=== PATIENT | female | born 1980 | race Caucasian/White ===

== ENCOUNTER → 2018-02-19 | Outpatient (CLI) | payer MEDICAID ==
[~2018-02-19] MED LIST: [UNRECOGNIZED DRUG - OTHER] PO
[2018-02-19 13:50] LABS: BASOPHILS # (AUTO) 0.03 x10^3/uL (0-0.1); BASOPHILS % (AUTO) 0 % (0-1); EOSINOPHILS # (AUTO) 0.05 x10^3/uL (0-0.4); EOSINOPHILS % (AUTO) 0 % (1-7); LYMPHOCYTES # (AUTO) 2.86 x10^3/uL (1-3.4); LYMPHOCYTES % (AUTO) 25 % (22-44); MD NO; MEAN CORPUSCULAR HEMOGLOBIN 30.8 pg (27.0-34.8); MEAN CORPUSCULAR HGB CONC 33.8 g/dL (32.4-35.8); MEAN CORPUSCULAR VOLUME 91.1 fL (80-100); MEAN PLATELET VOLUME 8.7 fL (7.4-10.4); MONOCYTES # (AUTO) 0.56 x10^3/uL (0.2-0.8); MONOCYTES % (AUTO) 5 % (2-9); NEUTROPHILS # (AUTO) 8.07 x10^3/uL (1.8-6.8); NEUTROPHILS % (AUTO) 70 % (42-75); PLATELET COUNT 248 x10^3/uL (130-400); RED BLOOD COUNT 4.85 x10^6/uL (3.82-5.3); RED CELL DISTRIBUTION WIDTH 15.4 % (9.6-15.2)
[2018-02-19 13:57] LABS: INTERNATIONAL NORMALIZED RATIO 0.91 (0.93-1.1); PROTHROMBIN TIME 9.5 Seconds (9.6-11.5)
[2018-02-19 14:01] LABS: ALANINE AMINOTRANSFERASE 53 U/L (12-78); ALBUMIN 3.9 g/dL (3.4-5.0); ANION GAP 12 mmol/L (5-15); CALCIUM 9.2 mg/dL (8.5-10.1); CHLORIDE 103 mmol/L (98-107); CREATININE 0.99 mg/dL (0.55-1.02)
[2018-02-19 14:05] LABS: ALKALINE PHOSPHATASE 56 U/L (45-117); BILIRUBIN,TOTAL 0.3 mg/dL (0.2-1.0); TOTAL PROTEIN 8.2 g/dL (6.4-8.2)
== END ==
LOC: STAR 12:41 → MERGE 13:00
PROVIDERS: ATTEND Specialist
DX: Z01.818 Encounter for other preprocedural examination (principal)
CPT/HCPCS: 36415; 71046; 80053; 84703; 85025; 85610; 85730; 93005

== ENCOUNTER 2018-02-25 09:00 | Day surgery (SDC) | payer MEDICAID, OTHER ==
[2018-02-19 13:53] VITALS: BP 172/111
[~2018-02-25] VITALS: Ht 170.2 cm; Wt 70.2 kg
[~2018-02-25 09:00] MED LIST changes: +BUPIVACAINE/PF 0.25% ONE
[2018-02-25] MEDS ORDERED: LACTATED RINGERS 1,000 ML IV SCH (09:10)
[2018-02-25] MEDS ORDERED: LIDOCAINE-MPF 1%, 2ML INFIL ONE (09:30)
[2018-02-25] MEDS ORDERED: LOESTRIN PO (09:41)
[2018-02-25 10:12] LABS: HCG UR SG 1.026 (1.003-1.030)
[2018-02-25] MEDS ORDERED: MIDAZOLAM 1 MG/ML, 2ML ONE (12:08)
[2018-02-25] MEDS ORDERED: FENTANYL PF 250 MCG/5ML ONE (12:08)
[2018-02-25] MEDS ORDERED: SUCCINYLCHOLINE 20 MG/ML, 10ML ONE (13:05)
[2018-02-25] MEDS ORDERED: DEXAMETHASONE 4 MG/ML, 1ML ONE (13:05)
[2018-02-25] MEDS ORDERED: KETOROLAC 30 MG/1 ML ONE (13:05)
[2018-02-25] MEDS ORDERED: CEFAZOLIN 1,000 MG ONE (13:05)
[2018-02-25] MEDS ORDERED: PROPOFOL 10 MG/ML, 20ML ONE (13:05)
[2018-02-25] MEDS ORDERED: LABETALOL 5MG/ML, 20ML ONE (13:05)
[2018-02-25] MEDS ORDERED: ONDANSETRON 2MG/ML, 2ML ONE (13:05)
[2018-02-25] MEDS ORDERED: HYDROcodone/APAP 7.5-325MG/15ML UDC PO PRN (14:30)
[2018-02-25] MEDS ORDERED: MEPERIDINE/PF 25MG/0.5ML IVPush PRN (14:30)
[2018-02-25] MEDS ORDERED: LABETALOL 5MG/ML, 20ML IV PRN (14:30)
[2018-02-25] MEDS ORDERED: HYDROmorphone 1 MG/ML, 1ML IV PRN (14:30)
[2018-02-25] MEDS ORDERED: METOCLOPRAMIDE 5 MG/ML, 2ML IV PRN (14:30)
[2018-02-25] MEDS ORDERED: hydrALAzine 20 MG/ML, 1ML IV PRN (14:30)
[2018-02-25] MEDS ORDERED: PROMETHAZINE 25 MG/ML, 1ML IV PRN (14:30)
[2018-02-25] MEDS ORDERED: ALBUTEROL SULFATE 2.5 MG/3 ML NPPB PRN (14:30)
[2018-02-25] MEDS ORDERED: ALBUTEROL/IPRATROPIUM 2.5MG/0.5MG, 3 ML NPPB PRN (14:30)
[2018-02-25] MEDS ORDERED: morphine SULFATE 10 MG/ML, 1ML IV PRN (14:30)
[2018-02-25] MEDS ORDERED: ONDANSETRON 2MG/ML, 2ML IVPush PRN (14:30)
[2018-02-25] MEDS ORDERED: MEPERIDINE/PF 25MG/0.5ML ONE (14:42)
[2018-02-25] MEDS ORDERED: HYDROcodone/APAP 7.5-325MG/15ML UDC ONE (14:48)
[2018-02-25] MEDS ORDERED: FENTANYL PF 100 MCG/2ML ONE (14:48)
[2018-02-25] MEDS: FENTANYL PF 100 MCG/2ML IV PRN ×2 (14:49→14:58)
== END 2018-02-25 16:45 | disposition home or self-care (01) ==
LOC: OUT 09:00 → MERGE 12:30 → OUT 16:45
PROVIDERS: ATTEND Specialist
DX: N94.6 Dysmenorrhea, unspecified (principal); D25.9 Leiomyoma of uterus, unspecified; Z98.890 Other specified postprocedural states
CPT/HCPCS: 36415; 58571; 81025; 82962; 86850; 86900; 86923; 88307; J0330; J0690; J1100; J1885; J2175; J2250; J2405; J2704; J3010; J3490; J7120